=== PATIENT | female | born 1965 | race Two or more races ===

== ENCOUNTER 2018-06-29 10:30 | Emergency (ER) | payer OTHER ==
[~2018-06-29] VITALS: Ht 165.1 cm; Wt 147.4 kg
[~2018-06-29 10:30] MED LIST: BENADRYL25 MG PO; CARDURA XL4 MG PO; LEVOXYL175 MCG PO; LOSARTAN POTAS100 MG PO; MEDROLPACK PO; PLAVIX75 MG PO; TOPROL XL25 MG PO; VERAPAMIL ER240 MG PO
[2018-06-29] MEDS ORDERED: ALDACTONE25 MG (10:55)
[2018-06-29] MEDS ORDERED: AVAPRO300 MG (10:56)
== END 2018-06-29 14:30 | disposition home or self-care (01) ==
LOC: ER 10:30
DX: L03.116 Cellulitis of left lower limb (principal)

== ENCOUNTER 2019-05-28 08:04 | Outpatient (CLI) | payer OTHER ==
[~2019-05-28 08:04] MED LIST changes: +ALDACTONE25 MG; +AVAPRO300 MG
== END 2019-05-28 08:10 | disposition home or self-care (01) ==
LOC: SONOGRAMA 08:04
DX: N63.10 Unspecified lump in the right breast, unspecified quadrant (principal)

== ENCOUNTER 2023-06-29 16:38 | Emergency (ER) | payer OTHER ==
[~2023-06-29] VITALS: Ht 162.6 cm; Wt 93.0 kg
[2023-06-29] MEDS ORDERED: ELIQUIS5 MG PO (17:17)
[2023-06-29] MEDS ORDERED: CRESTOR10 MG PO (17:18)
[2023-06-29] MEDS ORDERED: DOXAZOSIN MESYLA2 MG PO (17:18)
[2023-06-29] MEDS ORDERED: TOPROL XL50 M1 PO (17:19)
[2023-06-29] MEDS ORDERED: FLECAINIDE ACE100 MG PO (17:19)
[2023-06-29] MEDS ORDERED: 0.9 % SODIUM CHLORIDE 500 ML IV ONE (20:15)
[2023-06-29 20:59] LABS: HEMATOCRIT 36.9 % (36.0-45.00); HEMOGLOBIN 12.5 g/dL (12.0-15.00); MEAN CELL VOLUME 91.8 fL (80.00-100.00); MEAN CORPUSCULAR HEMOGLOBIN 31.1 pg (27.00-32.0); MEAN CORPUSCULAR HGB CONC 33.9 g/dl (32.0-36.0); PLATELET COUNT 202 K/uL (150-450); RED BLOOD COUNT 4.01 M/uL (4.00-6.00); RED CELL DISTRIBUTION WIDTH 13.2 % (11.5-14.5)
[2023-06-29 21:19] LABS: PARTIAL THROMBOPLASTIN TIME 25.7 SECONDS (22.0-34.0); PROTHROMBIN TIME 10.5 SECONDS (9.0-11.5)
[2023-06-29 21:20] LABS: CALCIUM 9.2 mg/dL (8.5-10.1); CREATININE SERUM 1.18 mg/dL (0.55-1.02); GFR 47.04; POTASSIUM 3.82 mEq/L (3.5-5.1)
[2023-06-29 22:20] LABS: URINE APPEARANCE Cloudy; URINE BILIRRUBIN Negative (NEGATIVE); URINE BLOOD Large; URINE COLOR Orange; URINE GLUCOSE Negative (NEGATIVE); URINE LEUKOCYTE Trace; URINE NITRATE Negative; URINE PROTEIN 30 (NEGATIVE)
[2023-06-29 22:24] LABS: URINE BACTERIA 117.1 uL (0.0-1933); URINE EPITHELIAL CELLS 6.3 uL (0.0-38.8); URINE RBC 6598.7 uL (0.0-20.8); URINE WBC 9.8 uL (0.0-23.2)
== END 2023-06-29 23:55 | disposition home or self-care (01) ==
LOC: ER 16:39
PROVIDERS: Nurse Practitioner Family
DX: D25.9 Leiomyoma of uterus, unspecified (principal); N93.9 Abnormal uterine and vaginal bleeding, unspecified; I10 Essential (primary) hypertension; E03.8 Other specified hypothyroidism; Z88.0 Allergy status to penicillin; Z88.1 Allergy status to other antibiotic agents
CPT/HCPCS: 36415; 76830; 93005; 96365; 96366; 99284; J7042

== ENCOUNTER 2023-07-08 05:15 | Day surgery (SDC) | payer OTHER ==
[2023-07-05 11:15] LABS: HEMATOCRIT 34.5 % (36.0-45.00); MEAN CELL VOLUME 92.2 fL (80.00-100.00); MEAN CORPUSCULAR HEMOGLOBIN 32.1 pg (27.00-32.0); MEAN CORPUSCULAR HGB CONC 34.8 g/dl (32.0-36.0); PLATELET COUNT 172 K/uL (150-450); RED BLOOD COUNT 3.75 M/uL (4.00-6.00); RED CELL DISTRIBUTION WIDTH 12.7 % (11.5-14.5)
[~2023-07-08 05:15] MED LIST changes: +CRESTOR10 MG PO; +DOXAZOSIN MESYLA2 MG PO; +ELIQUIS5 MG PO; +FLECAINIDE ACE100 MG PO; +TOPROL XL50 M1 PO
[2023-07-08] MEDS ORDERED: POVIDONE-IODINE 118 ML BOTT TOP ONE ×2 (13:43→14:30)
[2023-07-08] MEDS ORDERED: ONDANSETRON HCL 2 MG/ML VIAL IV ONE (15:00)
== END 2023-07-08 18:45 | disposition home or self-care (01) ==
LOC: CIR.AMB 05:15
PROVIDERS: ATTEND Obstetrics & Gynecology
DX: N84.0 Polyp of corpus uteri (principal); N93.8 Other specified abnormal uterine and vaginal bleeding; Z88.0 Allergy status to penicillin